=== PATIENT | male | born 1980 | race Caucasian/White ===

== ENCOUNTER 2018-01-18 22:12 | Emergency (ER) | payer OTHER ==
[2018-01-18 22:17] VITALS: BP 131/80
--- NOTE | 2018-01-18 22:30 | EDPHY ---
H & P Time Seen by Provider: 01/18/18 22:19 HPI/ROS: CHIEF COMPLAINT: Accidental burn right forearm HISTORY OF PRESENT ILLNESS: 37-year-old male with out-of-date tetanus, history of cerebral palsy primarily affecting his left upper extremity, was making hot potato soup once daily spilled soup onto the ulnar-volar aspect of the right arm. Non circumferential. Occurred shortly prior to arrival. Complaining of pain. No paresthesia. PRIMARY CARE PROVIDER: REVIEW OF SYSTEMS: 10 systems reviewed and are negative with exception of illness mentioned in the history of present illness PHYSICAL EXAM (Prior to examination, patient consented to physical exam, hands were washed and my usual and customary physical exam procedures followed) 1) GENERAL: Well-developed, well-nourished, alert and oriented. Appears to be in no acute distress. 2) HEAD: Normocephalic 3) HEENT: sclera anicteric 4) LUNGS: Breathing comfortably. 5) SKIN: Right upper extremity: On the ulnar-volar aspect of the patient's right forearm he has a superficial thickness burn with no blistering, no eschar , non circumferential. Soft compartments. Range of motion distally and proximally elicits no pain in room. 6) MUSCULOSKELETAL: Full pain-free range of motion. Brisk pulses. Normal coloration temperature distally. capillary refill less than 2 sec Smoking Status: Never smoked Constitutional: Initial Vital Signs Temperature (C) 36.6 C 01/18/18 22:15 Heart Rate 69 01/18/18 22:15 Respiratory Rate 16 01/18/18 22:15 Blood Pressure 131/80 H 01/18/18 22:15 O2 Sat (%) 96 01/18/18 22:15 O2 Delivery Mode Room Air Allergies/Adverse Reactions: No Known Allergies Allergy (Verified 01/18/18 22:18) Home Medications: Medication Instructions Recorded Amlodipine Besylate [Norvasc] 5 mg PO 08/01/14 Losartan Potassium [Cozaar] 50 mg PO DAILY 08/01/14 Hydrochlorothiazide 01/18/18 MDM/Departure - [facility] ED Course/Re-evaluation: Patient has superficial thickness burn which cleansed and dressed antibiotic ointment in the ER. Tetanus updated. This is non circumferential, is neurovascularly intact. Plan will be discharge home with my usual and customary wound in burn precautions instructions. He feels comfortable being discharged. I saw this patient independently based on established practice protocols. Care of patient under supervision of secondary supervising physician Dr Slaughter. - Depart Disposition: Home, Routine, Self-Care Clinical Impression: Right forearm superficial thickness burn Condition: Good Instructions: Superficial Burn (ED), Hydrocodone/Acetaminophen (By mouth) Additional Instructions: Return to the ER if you develop redness, swelling, discharge, warmth to the wound, red streaks going up your arm, or any other symptoms that concern you. Referrals: Ann Borges MD [Primary Care Provider] - 1-2 days without fail
[2018-01-18] MEDS ORDERED: HYDROCOD/APAP 5/325 PREPACK#6 BTL TAKEHOME ONE (22:31)
[2018-01-18] MEDS ORDERED: TDAP ADULT 0.5 ML INJ (BOOSTRIX) IM ONE (22:31)
[2018-01-18] MEDS ORDERED: LIDOCAINE 2% JELLY 20 ML (UROJECT) ONE (22:36)
[2018-01-18] MEDS ORDERED: LIDOCAINE 2% JELLY 20 ML (UROJECT) UR ONE (22:40)
== END 2018-01-18 22:50 | disposition home or self-care (01) ==
DX: T22.011A Burn of unspecified degree of right forearm, initial encounter (principal); X10.1XXA Contact with hot food, initial encounter